=== PATIENT | male | born 1970 | race Caucasian/White ===

== ENCOUNTER 2017-11-27 09:23 | Emergency (ER) | payer OTHER ==
[~2017-11-27] VITALS: Ht 175.3 cm; Wt 77.1 kg
[2017-11-27 09:29] VITALS: BP 170/88
[2017-11-27] MEDS ORDERED: LIDOCAINE 1% Multi-Dose 20 ML VIAL. IJ ONE (09:30)
[2017-11-27] MEDS ORDERED: IBUPROFEN 800 MG TABLET. PO ONE (09:39)
--- NOTE | 2017-11-27 09:41 | PHYS DOC ---
Past History Past Medical History: CAD, Hypertension, Stroke Past Surgical History: Other Smoking: Cigarettes Alcohol Use: None Drug Use: None Adult General Chief Complaint Chief Complaint: FINGER INJURY HPI HPI 47-year-old left-handed male patient state he cut his right thumb while he was at work and wearing glove with a tool grinder. Patient rated his pain 7/10 and denies other injuries and focal neurodeficit. Last tetanus shot is unknown. Review of Systems Review of Systems Constitutional: Denies fever or chills [] Eyes: Denies change in visual acuity, redness, or eye pain [] HENT: Denies nasal congestion or sore throat [] Respiratory: Denies cough or shortness of breath [] Cardiovascular: No additional information not addressed in HPI [] GI: Denies abdominal pain, nausea, vomiting, bloody stools or diarrhea [] : Denies dysuria or hematuria [] Musculoskeletal: Denies back pain or joint pain [] Integument: Denies rash or skin lesions , reports laceration[] Neurologic: Denies headache, focal weakness or sensory changes [] Endocrine: Denies polyuria or polydipsia [] All other systems were reviewed and found to be within normal limits, except as documented in this note. Current Medications Current Medications Current Medications Medications (Trade) Dose Ordered Sig/Keiry Start Time Stop Time Status Last Admin Dose Admin Diphtheria/ Tetanus/Acell Pertussis (Boostrix) 0.5 ml ONCE ONCE 11/27/17 09:30 11/27/17 09:31 UNV Ibuprofen (Motrin) 800 mg 1X ONCE 11/27/17 09:45 11/27/17 09:46 UNV Lidocaine HCl 20 ml 1X ONCE 11/27/17 09:30 11/27/17 09:31 UNV Allergies Allergies Allergies Coded Allergies Type Severity Reaction Last Updated Verified Penicillins Allergy Unknown 11/27/17 Yes codeine Allergy Unknown Hives 11/27/17 Yes Uncoded Allergies Type Severity Reaction Last Updated Verified pcn Allergy Unknown Hives 09/18/15 Physical Exam Physical Exam Constitutional: Well developed, well nourished, mild distress, non-toxic appearance. [] HENT: Normocephalic, atraumatic Eyes: PERRLA, EOMI, conjunctiva normal, no discharge. [] Neck: Normal range of motion, no tenderness, supple, no stridor. [] Cardiovascular:Heart rate regular rhythm, no murmur [] Lungs & Thorax: Bilateral breath sounds clear to auscultation [] Skin: Warm, dry, no erythema, no rash. [] Extremities: 3 cm superficial laceration on volar side of right thumb without neurovascular deficit Neurologic: Alert and oriented X 3, normal motor function, normal sensory function, no focal deficits noted. [] Psychologic: Affect normal, judgement normal, mood normal. [] Current Patient Data Vital Signs Vital Signs Date Time Temp Pulse Resp B/P (MAP) Pulse Ox O2 Delivery O2 Flow Rate FiO2 11/27/17 09:29 98.0 77 16 98 Room Air EKG EKG [] Radiology/Procedures Radiology/Procedures [][address] [address] IMAGING REPORT Signed PATIENT: HARLEEN LOPEZ ACCOUNT: [id number] : 1970 LOCATION: ER AGE: 47 SEX: M EXAM STATUS: REG ER ORD. PHYSICIAN: ANDRZEJ STACY MD REASON: thumb injury PROCEDURE: FINGER(S) RIGHT 3 views right thumb 11/27/2017 11:28 AM Indication: thumb injury, laceration with saw Comparison: None Findings: There is a punctate ossific density adjacent to the anterior proximal aspect of the distal phalanx. A tiny avulsion fracture is possible. No other fracture or dislocation is seen. Punctate radiopaque foreign bodies are seen within the overlying anterior soft tissue tissues. Impression: 1. Punctate ossific density adjacent to the anterior proximal distal phalanx. A tiny avulsion fracture is possible. 2. Punctate foreign bodies within the overlying anterior soft tissues DICTATED AND SIGNED BY: ROBERTO ATKINS MD DATE: 11/27/17 0948 CC: ANDRZEJ STACY MD; PCP,NO ~ Course & Med Decision Making Course & Med Decision Making Pertinent Imaging studies reviewed. (See chart for details) []discharge: I've spoken with the patient and/or caregivers. I've explained the patient's condition, diagnosis and treatment plan based on information available to me at this time. I've answered the patient's and/or caregivers questions and addressed any concerns. The patient and/or caregivers have a good understanding the patient's diagnosis, condition and treatment plan as can be expected at this point. Vital signs have been stabilized. The patient's condition is stable for discharge from the emergency department. The patient will pursue further outpatient evaluation with her primary care provider or other designated consulting physician as outlined in the discharge instructions. Patient and/or caregivers are agreeable to this plan of care and follow-up instructions have been explained in detail. The patient and/or caregivers have received these instructions in written format and expressed understanding of these discharge instructions. The patient and her caregivers are aware that if any significant change in condition or worsening of symptoms should prompt him to immediately return to this of the closest emergency department. If an emergent department is not readily available I would encourage him to call 911. Dragon Disclaimer Dragon Disclaimer This electronic medical record was generated, in whole or in part, using a voice recognition dictation system. Departure Departure: Impression: Primary Impression: Laceration of right thumb Additional Impressions: Avulsion fracture of phalanx of right thumb Foreign body (FB) in soft tissue Uncontrolled hypertension Tobacco abuse Tobacco abuse counseling Disposition: HOME, SELF-CARE (At 1010) Condition: IMPROVED Referrals: PCP,NO (PCP) Patient Instructions: Avulsion Fracture, Smoking Cessation, Sutured Wound Care Additional Instructions: Keep wound clean and dry Follow-up with your primary care physician in 3-5 days Return to ER if not getting better Suture removal in 10-14 days Scripts Ibuprofen (IBUPROFEN) 800 Mg Tablet 1 TAB PO TID, #30 TAB Prov: ANDRZEJ STACY MD 11/27/17 Laceration Repair Lac Repair Indication: [Right palm laceration] Procedure: The patient was placed in the appropriate position and anesthesia around the thumb laceration 1% lidocaine was given. Wound was irrigated for a small foreign body was showed in x-ray. . The laceration was closed with 4-0 nylon with 4 sutures]. [ADDITIONAL LACS] The wound area was then dressed with [ the dressing]. Total repaired wound length: [3 cm]. Other Items: [OTHER ITEMS] The patient tolerated the procedure [well]. Complications: [none]. Problem Qualifiers ANDRZEJ STACY MD Nov 27, 2017 09:41
[2017-11-27] MEDS ORDERED: IBUPROFEN 400 MG TABLET. PO ONE (09:45)
--- NOTE | 2017-11-27 09:55 | RAD ---
3 views right thumb 11/27/2017 11:28 AM Indication: thumb injury, laceration with saw Comparison: None Findings: There is a punctate ossific density adjacent to the anterior proximal aspect of the distal phalanx. A tiny avulsion fracture is possible. No other fracture or dislocation is seen. Punctate radiopaque foreign bodies are seen within the overlying anterior soft tissue tissues. Impression: 1. Punctate ossific density adjacent to the anterior proximal distal phalanx. A tiny avulsion fracture is possible. 2. Punctate foreign bodies within the overlying anterior soft tissues
[2017-11-27] MEDS ORDERED: DIPHTH,PERTUSS(ACELL),TET TOX 0.5 ML DISP.SYRIN. VAX IM ONE (10:00)
[2017-11-27] MEDS ORDERED: IBUP800T19 PO (10:13)
== END 2017-11-27 10:18 | disposition home or self-care (01) ==
LOC: ER 09:23
DX: S62.511A Displaced fracture of proximal phalanx of right thumb, initial encounter for closed fracture (principal); S60.351A Superficial foreign body of right thumb, initial encounter; I10 Essential (primary) hypertension; I25.10 Atherosclerotic heart disease of native coronary artery without angina pectoris; F17.210 Nicotine dependence, cigarettes, uncomplicated; Z71.6 Tobacco abuse counseling; Z88.0 Allergy status to penicillin; Z88.6 Allergy status to analgesic agent; W29.0XXA Contact with powered kitchen appliance, initial encounter; Y93.89 Activity, other specified; Y99.8 Other external cause status; Y92.89 Other specified places as the place of occurrence of the external cause
CPT/HCPCS: 12002; 12041; 73140; 90471; 90715; 99284-25

== ENCOUNTER 2021-04-16 05:49 | Emergency (ER) | payer SELFPAY ==
[~2021-04-16] VITALS: Ht 175.3 cm; Wt 77.0 kg
[~2021-04-16 05:49] MED LIST: IBUP800T19 PO
[2021-04-16] MEDS ORDERED: ASPIRIN CHEWABLE 81 MG TABLET. ONE (05:58)
[2021-04-16] MEDS ORDERED: NITROGLYCERIN SUBLINGUAL 0.4 MG BOTTLE OF 25. SL ONE (05:58)
[2021-04-16] MEDS: NITROGLYCERIN SUBLINGUAL 0.4 MG BOTTLE OF 25. SL PRN ×4 (05:59→06:18)
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
--- NOTE | 2021-04-16 06:15 | EKG ---
[address] [address] Test Date: 2021-04-16 Test Time: 05:54:37 Pat Name: HARLEEN LOPEZ Department: Room: Gender: M Non Clinical Advisor: TRIPP : 1970 Requested By: TANNER SMITH Order Number: [id number] Reading MD: Measurements Intervals [place] Rate: 91 P: 34 NV: 116 QRS: 12 QRSD: 98 T: 221 QT: 370 QTc: 457 Interpretive Statements SINUS RHYTHM LEFT ATRIAL ABNORMALITY QRS(T) CONTOUR ABNORMALITY CONSISTENT WITH INFERIOR INFARCT AGE UNDETERMINED ST & T ABNORMALITY, CONSIDER ANTEROLATERAL ISCHEMIA OR LEFT VENTRICULAR STRAIN ABNORMAL ECG RI6.02 No previous ECG available for comparison
[2021-04-16 06:24] LABS: BASO % 0 % (0-3); EOS # 0.2 x10^3/uL (0.0-0.7); EOS % 2 % (0-3); HEMOGLOBIN 13.1 g/dL (13.0-17.5); LYMPH # 1.3 x10^3/uL (1.0-4.8); LYMPH % 12 % (24-48); MEAN CORPUSCULAR HEMOGLOBIN 30 pg (25-35); MEAN CORPUSCULAR HGB CONC 34 g/dL (31-37); MEAN CORPUSCULAR VOLUME 89 fL (79-100); MONO # 1.2 x10^3/uL (0.0-1.1); MONO % 11 % (0-9); NEUT # 7.7 x10^3uL (1.8-7.7); NEUT % 74 % (31-73); PLATELET COUNT 388 x10^3/uL (140-400); RED BLOOD COUNT 4.37 x10^6/uL (4.30-5.70); RED CELL DISTRIBUTION WIDTH 14.6 % (11.5-14.5); WHITE BLOOD COUNT 10.4 x10^3/uL (4.0-11.0)
[2021-04-16] MEDS ORDERED: ASPIRIN CHEWABLE 81 MG TABLET. PO ONE (06:30)
[2021-04-16 06:34] LABS: CALCIUM 8.4 mg/dL (8.5-10.1); CREATININE 1.2 mg/dL (0.7-1.3); GFR 64.1; POTASSIUM 3.7 mmol/L (3.5-5.1)
--- NOTE | 2021-04-16 06:38 | EKG ---
[address] [address] Test Date: 2021-04-16 Test Time: 06:28:17 Pat Name: HARLEEN LOPEZ Department: Room: Gender: M Fixture Designer: TRIPP : 1970 Requested By: TANNER SMITH Order Number: [id number] Reading MD: Measurements Intervals [place] Rate: 81 P: 35 ID: [id number] QRS: 7 QRSD: 96 T: 212 QT: 402 QTc: 467 Interpretive Statements SINUS RHYTHM LEFT ATRIAL ABNORMALITY QRS(T) CONTOUR ABNORMALITY CONSISTENT WITH INFERIOR INFARCT AGE UNDETERMINED ST & T ABNORMALITY, CONSIDER ANTEROLATERAL ISCHEMIA OR LEFT VENTRICULAR STRAIN ABNORMAL ECG RI6.02 No previous ECG available for comparison
--- NOTE | 2021-04-16 07:00 | RAD ---
AP chest. HISTORY: Chest pain AP view was taken of the chest. Patient's not taken a deep inspiration. Heart is within normal limits in size. There is no pleural effusion. There are no acute infiltrates. IMPRESSION: 1. No acute infiltrates. Electronically signed by: Rashawn Prescott MD (04/16/2021 6:57 AM) [id number]
[2021-04-16] MEDS ORDERED: NITROGLYCERIN PREMIX 250 ML IV ONE (07:15)
[2021-04-16] MEDS ORDERED: HEPARIN 25,000UTS/250ML PREMIX 250 ML IV PRN (07:15)
[2021-04-16] MEDS ORDERED: HEPARIN for IV BOLUS 10,000 UNIT/10 ML VIAL. IV PRN (07:15)
[2021-04-16] MEDS ORDERED: HEPARIN for IV BOLUS 10,000 UNIT/10 ML VIAL. IV ONE (07:15)
[2021-04-16] MEDS ORDERED: ATORVASTATIN CALCIUM 20 MG TABLET PO SCH (07:30)
[2021-04-16] MEDS ORDERED: ATORVASTATIN CALCIUM 20 MG TABLET PO ONE (07:30)
[2021-04-16 08:50] LABS: BARBITURATES NEG (NEG); BENZODIAZEPINES NEG (NEG); CANNABINOIDS POS (NEG); COCAINE NEG (NEG); METHADONE NEG (NEG); OPIATES NEG (NEG); PHENCYCLIDINE NEG (NEG)
[2021-04-16 08:52] LABS: AMPHETAMINE/METHAMPHETAMINE POS (NEG)
[2021-04-16] MEDS: NITROGLYCERIN PREMIX 250 ML IV PRN ×2 (10:21→10:56)
[2021-04-16 12:30] VITALS: BP 155/95
[2021-04-16] MEDS ORDERED: POTASSIUM CHLORIDE 20 MEQ TABLET.ER. PO ONE (12:45)
== END 2021-04-16 12:48 | disposition short-term general hospital (02) ==
LOC: ER 05:49
DX: I21.4 Non-ST elevation (NSTEMI) myocardial infarction (principal); F15.10 Other stimulant abuse, uncomplicated; Z91.14 Patient's other noncompliance with medication regimen; I10 Essential (primary) hypertension; I25.10 Atherosclerotic heart disease of native coronary artery without angina pectoris; F17.210 Nicotine dependence, cigarettes, uncomplicated; E78.00 Pure hypercholesterolemia, unspecified; Z20.822 Contact with and (suspected) exposure to COVID-19; Z86.73 Personal history of transient ischemic attack (TIA), and cerebral infarction without residual deficits; Z79.82 Long term (current) use of aspirin; Z88.0 Allergy status to penicillin; Z88.5 Allergy status to narcotic agent
CPT/HCPCS: 36415; 71045; 80048; 80307; 83880; 84484; 85025; 85610; 85730; 87426; 93005; 96365; 96366; 96368; 96375; 96376; 99291; C9803; G0480; J1644; J2060; J3490; U0003